=== PATIENT | female | born 1945 | race Caucasian/White ===

== ENCOUNTER 2018-07-24 12:53 | Inpatient (IN) ==
[2018-07-24] MEDS ORDERED: dilTIAZem HCl 5 MG/ML 5 ML VIAL IV STA (13:10)
[2018-07-24] MEDS ORDERED: SODIUM CHLORIDE 0.9% 500 ML IV SCH (13:15)
--- NOTE | 2018-07-24 13:18 | XRay Report ---
XR chest 1V portable CLINICAL HISTORY: weakness COMPARISON STUDY: No previous studies for comparison. FINDINGS: The heart is enlarged. There is radiographic evidence of mild congestive failure/fluid over load. Trace pleural effusions are suspected. There is no focal pulmonary consolidation.[ IMPRESSION: Cardiomegaly and radiographic evidence of mild congestive failure/fluid overload. Electronically signed by: Humble Guajardo M.D. 07/24/2018 1:17 PM
[2018-07-24 14:00] LABS: Basophils # (auto) 0.01 K/uL (0-0.2); Basophils % (auto) 0.1 %; Eosinophils # (auto) 0.02 K/uL (0-0.5); Eosinophils % (auto) 0.3 %; Hemoglobin 12.7 g/dL (12.0-16.0); Immature Granulocytes # (auto) 0.01 K/uL (0.00-0.02); Immature Granulocytes % (auto) 0.1 %; Mean Corpuscular Hgb Conc 31.8 g/dL (32-36); Mean Platelet Volume 11.3 fL (7.4-10.4); Monocytes # (auto) 0.29 K/uL (0.11-0.59); Neutrophils # (auto) 5.88 K/uL (1.4-6.5); Neutrophils % (auto) 80.5 %; Platelet Count 197 K/uL (130-400); RDW Coefficient of Variation 13.6 % (11.5-14.5); RDW Standard Deviation 49.2 fL (36.4-46.3); Red Blood Count 4.04 M/uL (4.2-5.4); White Blood Count 7.31 K/uL (4.8-10.8)
[2018-07-24 14:12] LABS: Albumin Level 3.6 gm/dl (3.4-5.0); BUN Creatinine Ratio 23.4 (10-20); Calcium 9.3 mg/dl (8.5-10.1); Creatinine Clr Calc Pharmacy 32.5 ml/min; Est GFR (African American) 23.2; Magnesium 2.1 mg/dl (1.8-2.4); Potassium 4.5 mmol/L (3.5-5.1)
[2018-07-24 14:17] LABS: INR 1.1 (0.9-1.1); Partial Thromboplastin Time 27.1 Seconds (21.0-31.0); Prothrombin Time 11.3 Seconds (9.0-12.0)
[2018-07-24 14:23] LABS: Bilirubin,Total 0.8 mg/dl (0.2-1); Globulin 3.5 gm/dl (2.5-4.0); Total Protein 7.1 gm/dl (6.4-8.2); Troponin I 0.035 ng/ml (0-0.045)
[2018-07-24] MEDS ORDERED: AMIODARONE IV BOLUS / DRIP IV STA (14:23)
[2018-07-24 14:38] LABS: Appearance Urine Clear (Clear); Bacteria Urine Automated Negative (Negative); Bilirubin Urine Negative (Negative); Blood Urine Negative (Negative); Color Urine Yellow; Glucose Urine UA Negative (Negative); Ketones Urine Negative (Negative); Leukocyte Esterase Urine Trace (Negative); Nitrite Urine Negative (Negative); Protein Urine Negative (Negative); RBC Urine Automated 0-4 /hpf (0-4); Specific Gravity Urine 1.016 (1.000-1.030); Urobilinogen Urine Negative (Negative)
[2018-07-24] MEDS ORDERED: AMIODARONE / D5W 150 MG/100 ML BAG IV STA (14:42)
--- NOTE | 2018-07-24 14:42 | Cardiology Consultation ---
Date of Consultation July 24, 2018 Assessment & Plan (1) Atrial fibrillation with RVR: The patient has been chronically anticoagulated with renally dose adjusted Eliquis 2.5 mg twice daily. She has not missed any doses she took a dose this morning. Will proceed with rhythm control strategy. Due to her underlying history of structural heart disease with left ventricular hypertrophy and aortic valve stenosis, proceed with IV amiodarone infusion. We will try to optimize her volume status, if she remains in atrial fibrillation, consideration will be made toward direct current cardioversion this admission. Continue Eliquis 2.5 mg twice daily for stroke prophylaxis. (2) Acute on chronic diastolic (congestive) heart failure: Trace bilateral pleural effusions. We will work on optimizing heart rate, continue hospital dose of torsemide for n ow, versus IV furosemide depending upon how her blood pressure heart rate response to the amiodarone infusion (3) Chronic kidney disease, stage IV (severe): Creatinine today of 2.31, calculated GFR 20 mL/min/m, relatively unchanged compared to previous creatinine 2.1 as an outpatient December 2017 calculated GFR of 22.5 at that time. (4) Aortic stenosis: History of moderate to severe aortic stenosis, update echocardiogram. History of Present Illness History of Present Illness Cindy Hicks is a 73 year old female seen in cardiology consultation in the emergency room bed C4 per the request of Dr Trinidad and Kaleb Tate PA-C for the evaluation of atrial fibrillation with rapid ventricular response. The patient described feeling poorly for the last few weeks with easy fatigability. She has a home pulse oximeter and she noted that with minimal exertion it would register heart rates up to the 165 bpm range. She thought that the monitor was making an air and that perhaps she needed to change the batteries, however she was seen in outpatient cardiology follow-up by Mr. Tate today at [facility] and was found to have atrial fibrillation with rapid ventricular response. Her EKG performed at [facility] revealed atrial fibrillation with rapid ventricular response at 108 bpm. Compared to the prior tracing performed 07/04/2017 atrial fibrillation had replaced sinus rhythm and the ventricular rate had increased by 58 bpm. Mild nonspecific lateral repolarization changes were noted. The patient was transferred by EMS. She had received 20 mg of IV diltiazem administered by EMS in route to the hospital, and prior to my assessment of her in emergency room she had just received an additional 10 mg of IV diltiazem. Her rates on arrival to the emergency room where the range of 140 bpm, now with a range of 90 bpm. Past Medical History: 1.History of paroxysmal atrial fibrillation. 2.Chronic diastolic heart failure with preserved LV systolic function. 3.Moderate to severe calcific aortic valve stenosis. 4.Longstanding hypertension. 5.Chronic nocturnal hypoxia. 6.Stage IV chronic kidney disease. 7.Bilateral inte 8. Iron deficiency anemia. 9.Dyslipidemia Surgical History: 1. Remote cholecystectomy 1981 2. Tubal ligation 1974 3. Right cataract extraction 2008 Family History: Father with history of "heart disease "details unknown Mother with history of diabetes and TIA. Social History: Lives in 5th floor apartment Non-smoker On disability due to neuropathy Allergies Allergy/AdvReac Type Severity Reaction Status Date / Time No Known Allergies Allergy Unverified 07/24/18 14:22 Home Medications Home Medications Medication Instructions Recorded Confirmed Type allopurinol 200 mg PO DAILY 07/24/18 07/24/18 History amlodipine 10 mg PO DAILY 07/24/18 07/24/18 History apixaban [Eliquis] 2.5 mg PO BID 07/24/18 07/24/18 History calcitriol 0.25 mcg PO Q2D 07/24/18 07/24/18 History carvedilol [Coreg] 12.5 mg PO PM 07/24/18 07/24/18 History carvedilol [Coreg] 25 mg PO QAM 07/24/18 07/24/18 History duloxetine [Cymbalta] 30 mg PO DAILY 07/24/18 07/24/18 History duloxetine [Cymbalta] 60 mg PO DAILY 07/24/18 07/24/18 History insulin glargine [Lantus Solostar 48 unit SUBCUT DAILY 07/24/18 07/24/18 History U-100 Insulin] isosorbide mononitrate 30 mg PO DAILY 07/24/18 07/24/18 History levothyroxine [Synthroid] 175 mcg PO DAILY 07/24/18 07/24/18 History linagliptin [Tradjenta] 5 mg PO DAILY 07/24/18 07/24/18 History loratadine [Claritin] 10 mg PO DAILY 07/24/18 07/24/18 History losartan 50 mg PO DAILY 07/24/18 07/24/18 History metolazone 2.5 mg PO DAILY 07/24/18 07/24/18 History ranitidine HCl [Zantac] 150 mg PO BID 07/24/18 07/24/18 History rosuvastatin [Crestor] 20 mg PO DAILY 07/24/18 07/24/18 History torsemide [Demadex] 20 mg PO DAILY 07/24/18 07/24/18 History tramadol 50 mg PO Q8H PRN 07/24/18 07/24/18 History Patient History Medical History Paroxysmal atrial fibrillation (Chronic) Social History Feels Safe at Home: Yes Smoking Status: Never smoker Physical Exam Physical Exam: General: no acute distress and stated age Eyes: conjunctiva are pink and non-injected, sclera clear Neck: normal jugular venous pulse, no hepatojugular reflux Chest: normal shape and normal respiratory effort Lungs: Mildly decreased breath sounds at the bases bilaterally Cardiac Exam: -Irregular rhythm, 1/6 systolic murmur heard best at the right sternal border Abdomen: abdomen soft, non-tender, no abnormal masses and no hepatosplenomegaly Musculoskeletal: no gait disturbance, no weakness Extremities: no edema and no cyanosis Neuro:awake, coversant, follows commands, no focal motor deficits Psych: appropriate affect and insight. Results & Data Vital Signs (Past 12 Hours) Vital Signs Temp Pulse Resp BP Pulse Ox 07/24/18 13:25 105 H 22 96 07/24/18 13:04 36.5 C 109 H 22 164/107 H 96 Laboratory Results Cardiac Enzymes 07/24/18 Range/Units 13:42 AST 8 L (15-37) U/L Troponin I 0.035 (0-0.045) ng/ml Coagulation 07/24/18 Range/Units 13:42 PT 11.3 (9.0-12.0) Seconds APTT 27.1 (21.0-31.0) Seconds CBC 07/24/18 Range/Units 13:42 WBC 7.31 (4.8-10.8) K/uL RBC 4.04 L (4.2-5.4) M/uL Hgb 12.7 (12.0-16.0) g/dL Hct 40.0 (37-47) % Plt Count 197 (130-400) K/uL Neut # (Auto) 5.88 (1.4-6.5) K/uL Lymph # (Auto) 1.10 L (1.2-3.4) K/uL [place] # (Auto) 0.29 (0.11-0.59) K/uL Eos # (Auto) 0.02 (0-0.5) K/uL Baso # (Auto) 0.01 (0-0.2) K/uL Comprehensive Metabolic Panel 07/24/18 Range/Units 13:42 Sodium 137 (136-145) mmol/L Potassium 4.5 (3.5-5.1) mmol/L Chloride 105 (98-107) mmol/L Carbon Dioxide 28 (21-32) mmol/L BUN 54 H (7-18) mg/dl Creatinine 2.31 H (0.6-1.2) mg/dl Glucose 255 H (70-99) mg/dl Calcium 9.3 (8.5-10.1) mg/dl AST 8 L (15-37) U/L ALT 12 (12-78) U/L Alkaline Phosphatase 137 H (45-117) U/L Total Protein 7.1 (6.4-8.2) gm/dl Albumin 3.6 (3.4-5.0) gm/dl Intake and Output 07/23/18 07/24/18 07/24/18 22:59 06:59 14:59 Intake Total 100 / 100 Balance 100 / 100 Intake: IV 100 / 100 Left Forearm 100 / 100 Other: Weight 145 kg Patient Weight 07/25/18 06:59 Weight 145 kg Diagnostic Findings EKG as outlined above Medications Administered Current Inpatient Medications Amiodarone HCl (Cordarone Iv Bolus / Drip) 1 ea IV NOW STA; Protocol Stop: 07/24/18 14:24 Amiodarone HCl/Dextrose (Nexterone / D5w) 360 mg in 200 mls @ 33.333 mls/hr IV .Q6H LESTER Stop: 07/24/18 20:29 Amiodarone HCl/Dextrose (Nexterone / D5w) 360 mg in 200 mls @ 16.667 mls/hr IV .Q12H LESTER Stop: 08/23/18 20:22 Amiodarone HCl/Dextrose (Nexterone / D5w) 150 mg in 100 mls @ 600 mls/hr IV ONE STA Stop: 07/24/18 14:32
[2018-07-24] MEDS ORDERED: AMIODARONE / D5W 360 MG/200 ML BAG IV SCH (14:51)
--- NOTE | 2018-07-24 15:53 | History & Physical Report ---
Date of Service July 24, 2018 Assessment & Plan (1) Atrial fibrillation with RVR: Pt with hx of paroxysmal atrial fibrillation on Eliquis. Pt presented to ER from cardiology office for A-fib RVR rate of 108 En route pt was given cardizem 20mg. In ER was given additional cardizem 10mg. Pt is afebrile, P: 109, R: 22, BP: 164/107, 129/92, 96%. WBC: 7.3, Hgb: 12.7, INR: 1.1, magnesium: 2.1, Troponin: 0.035, TSH: 4.1. EKG: a-fib, rate 91 -Cardiology saw pt in ER and started on amiodarone drip -Continue Eliquis -Echo pending -Monitor CBC, BMP -Cardiology consult, appreciate recommendations (2) Acute on chronic diastolic (congestive) heart failure: CXR: cardiomegaly and radiographic evidence of mild congestive failure/fluid overload. Pt denies orthopnea -continue home torsemide per cardiology -monitor I&Os, daily weights (3) Diabetes mellitus, type II: A1c: 9.9 on 09/2017 -continue home Lantus, Novolog sliding scale per protocol -hold Tradjenta -A1c in am (4) HTN (hypertension): Stable -Monitor BP closely, pt on amiodarone drip -Continue losartan, carvedilol, isosorbide (5) Dyslipidemia: -continue statin (6) Aortic stenosis: Hx moderate aortic valve stenosis, last echo 12/2017 (7) Chronic kidney disease, stage IV (severe): Cr: 2.3. Baseline Cr: 2.1 -monitor renal functions -avoid nephrotoxic agents when possible (8) Depression: -continue duloxetine (9) Nocturnal hypoxia: -Continue oxygen 2L NC HS (10) Hypothyroidism: TSH: 4.1 -continue levothyroxine DVT Prophylaxis -On Eliquis DNR as per discussion with pt Follows with Dr Herr for routine care Pt was seen with Dr Putnam. See addendum History of Present Illness Chief Complaint: A-fib Primary Care Provider: Miquel Herr MD Pt is 73 y/o F with PMH paroxysmal atrial fibrillation on Eliquis, chronic diastolic heart failure, aortic valve stenosis, HTN, dyslipidemia, CKD IV, chronic nocturnal hypoxia, chronic anemia, DM II, obesity, depression, hypothyroidism presented to ER from cardiology office for atrial fibrillation. Patient was seen today cardiology office and had noted atrial fibrillation with rate of 108. Patient reports that she has been having intermittent tachypalpitations, dizziness over the past couple of weeks. Also reports increased dyspnea on exertion, nonproductive cough, increased fatigue. Patient states has home pulse oximeter and had noted on several occasions her pulse was recorded at 165. Patient denies missed doses of Eliquis. Denies fever/chills, diaphoresis, N/V/D/C, [place], syncope, vision changes, neck pain, CP, orthopnea, sore throat, choking, otalgia, rhinorrhea, abdominal pain, paresthesias, weakness, extremity edema, rashes, urinary symptoms. 12/2017: Echo: EF: 55-59%, moderate aortic valve stenosis, mild mitral regurgitation, small pericardial effusion Allergies Allergy/AdvReac Type Severity Reaction Status Date / Time No Known Allergies Allergy Unverified 07/24/18 14:22 Home Medications Home Medications Medication Instructions Recorded Confirmed Type allopurinol 200 mg PO DAILY 07/24/18 07/24/18 History amlodipine 5 mg PO DAILY 07/24/18 07/24/18 History apixaban [Eliquis] 2.5 mg PO BID 07/24/18 07/24/18 History calcitriol 0.25 mcg PO UD 07/24/18 07/24/18 History carvedilol [Coreg] 12.5 mg PO PM 07/24/18 07/24/18 History carvedilol [Coreg] 25 mg PO QAM 07/24/18 07/24/18 History duloxetine [Cymbalta] 30 mg PO HS 07/24/18 07/24/18 History duloxetine [Cymbalta] 60 mg PO DAILY 07/24/18 07/24/18 History insulin aspart U-100 [Novolog 14 unit SUBCUT TIDM 07/24/18 07/24/18 History Flexpen U-100 Insulin] insulin glargine [Lantus Solostar 48 unit SUBCUT DAILY 07/24/18 07/24/18 History U-100 Insulin] isosorbide mononitrate 30 mg PO DAILY 07/24/18 07/24/18 History levothyroxine [Synthroid] 175 mcg PO DAILY 07/24/18 07/24/18 History linagliptin [Tradjenta] 5 mg PO DAILY 07/24/18 07/24/18 History loratadine [Claritin] 10 mg PO DAILY 07/24/18 07/24/18 History losartan 50 mg PO DAILY 07/24/18 07/24/18 History ranitidine HCl [Zantac] 150 mg PO BID 07/24/18 07/24/18 History rosuvastatin [Crestor] 20 mg PO HS 07/24/18 07/24/18 History torsemide [Demadex] 20 mg PO DAILY 07/24/18 07/24/18 History tramadol 50 mg PO Q8H PRN 07/24/18 07/24/18 History Past Med/Surg History Medical History Nocturnal hypoxia (Chronic) Hypothyroidism (Chronic) Depression (Chronic) Chronic anemia (Chronic) Paroxysmal atrial fibrillation (Chronic) Chronic diastolic heart failure (Chronic) Diabetes mellitus, type II (Chronic) GERD (gastroesophageal reflux disease) (Chronic) HTN (hypertension) (Chronic) Dyslipidemia (Chronic) Aortic stenosis (Chronic) Chronic kidney disease, stage IV (severe) (Chronic) Paroxysmal atrial fibrillation (Chronic) Kidney disease Surgical History History of cholecystectomy (Chronic) History of tubal ligation (Chronic) History of cataract surgery (Chronic) Family History Mother Diabetes Father Coronary heart disease Social History Preferred Language: Palestinian Communication 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 Beliefs That Will Affect Care: None Current Living Situation: Alone Current Living Situation Comment: apartment for elderly Other Information That Helps Us Care for You: No Feels Safe at Home: Yes Safety Concerns: Feels Safe At This Time Smoking Status: Never smoker Hx Alcohol Use: No Hx Substance Use: No Review of Systems Review of Systems: All systems reviewed & are unremarkable except as noted in HPI & below Physical Exam Physical Exam: General: no acute distress, obese Head: normocephalic, atraumatic Eyes: PERRL, EOM's intact, conjunctiva non-injected, anicteric ENT: normal inspection external ears, nose, mucous membranes moist Neck: supple, trachea midline Lungs: no respiratory distress, diminished breath sounds bases CV: irregularly irregular, systolic murmur, 1+ pretibial edema Abd: normal BS, soft, non-tender Ext: no cyanosis, no calf tenderness Neuro: A&O x 3, no focal deficits noted, normal affect Skin: warm, dry Results & Data Vital Signs (Past 12 Hours) Vital Signs Temp Pulse Pulse Resp BP BP Pulse Ox 07/24/18 15:39 92 07/24/18 15:36 88 22 143/88 H 88 L 07/24/18 14:44 96 H 24 129/92 91 07/24/18 13:25 105 H 22 96 07/24/18 13:04 36.5 C 109 H 22 164/107 H 96 Laboratory Results Short CBC 07/24/18 Range/Units 13:42 WBC 7.31 (4.8-10.8) K/uL Hgb 12.7 (12.0-16.0) g/dL Hct 40.0 (37-47) % Plt Count 197 (130-400) K/uL BMP 07/24/18 13:42 Sodium 137 Potassium 4.5 Chloride 105 Carbon Dioxide 28 BUN 54 H Creatinine 2.31 H Glucose 255 H Calcium 9.3 Cardiac Enzymes 07/24/18 Range/Units 13:42 Troponin I 0.035 (0-0.045) ng/ml Liver Function 07/24/18 Range/Units 13:42 Total Bilirubin 0.8 (0.2-1) mg/dl AST 8 L (15-37) U/L ALT 12 (12-78) U/L Alkaline Phosphatase 137 H (45-117) U/L Albumin 3.6 (3.4-5.0) gm/dl Urine 07/24/18 Range/Units 14:19 Urine Color Yellow Urine Appearance Clear (Clear) Urine pH 5.0 (4.5-7.5) Ur Specific [place] 1.016 (1.000-1.030) Urine Protein Negative (Negative) Urine Glucose (UA) Negative (Negative) Diagnostic Findings CXR: IMPRESSION: Cardiomegaly and radiographic evidence of mild congestive failure/fluid overload. ECG Rate (beats per minute): 91 Rhythm: atrial fibrillation Supervising Physician Co-Signing Physician Notes Pt was seen and examined. Agreed with Tammi Samuel exam, assessment and plan. 73 y/o F with PMH paroxysmal atrial fibrillation on Eliquis, chronic diastolic heart failure, aortic valve stenosis, HTN, dyslipidemia, CKD IV, chronic nocturnal hypoxia, chronic anemia, DM II, obesity, depression, hypothyroidism presented to ER from cardiology office for atrial fibrillation. Pt said that she has been having palpitation and flutter sensation in her chest for the past few weeks. she was seen in outpatient cardiology follow-up by Mr. Tate today at [facility] and was found to have atrial fibrillation with rapid ventricular response. Her EKG performed at [facility] revealed atrial fibrillation with rapid ventricular response at 108 bpm. She received IV cardizem 20mg IV today by EMS and additional 10mg IV in the ER. Cardiology on board and started on amiodarone drip. She has been on Eliquis and will continue anticoagulant with eliquis. Currently rate control. If remains on Afib, possible cardioversion by cardiology. For now Pt would like to proceed with a trial of medication therapy prior to consideration of direct-current cardioversion. Continue monitor closely in tele. MD [place]
[2018-07-24] MEDS ORDERED: GLUCAGON FOR INJ 1 MG VIAL SQ PRN (18:03)
[2018-07-24] MEDS ORDERED: GLUCOSE 40% GEL 15 GM TUBE PO PRN (18:03)
[2018-07-24] MEDS ORDERED: GLUCOSE 10 TABS/TUBE PO PRN (18:03)
[2018-07-24] MEDS ORDERED: DEXTROSE 50% 50 ML SYRINGE IV PRN (18:03)
[2018-07-24] MEDS ORDERED: Heparin IV Low Dose *NO* Bolus IV STA (18:53)
--- NOTE | 2018-07-24 19:25 | Cardiology Progress Note ---
Date of Service July 24, 2018 Subjective I received a page from a clinical pharmacy. Concerns were raised regarding the patient's proper anticoagulation dose. She has been on Eliquis 2.5 mg twice daily. She has renal insufficiency with a calculated GFR of 20 mL/min/m on a chronic basis. She is 73 years old, and she is obese with a body mass index of 47.5 kg/m. Eliquis 2.5 mg twice daily is the dose for patients with 2 of the 3 risk factors, creatinine > 1.5, Age > 80 years, and wt of less than 60 kg. This patient has renal insufficiency, but she is only 73 years old she is obese, and therefore the dose for her is difficult to determine. She is currently in atrial fibrillation. Overall, I would grow concerned that there is not an appropriate dose adjustment for the direct oral anticoagulant agents that suits her clinical criteria, and after careful consideration will instead transition her to unfractionated heparin infusion, with goals of likely transition her to Coumadin in the future. Results & Data Vital Signs (Past 12 Hours) Vital Signs Temp Pulse Pulse Resp BP BP Pulse Ox 07/24/18 17:17 36.7 C 85 20 145/88 H 96 07/24/18 16:45 112 H 20 121/82 92 07/24/18 15:39 92 07/24/18 15:36 88 22 143/88 H 88 L 07/24/18 14:44 96 H 24 129/92 91 07/24/18 13:25 105 H 22 96 07/24/18 13:04 36.5 C 109 H 22 164/107 H 96
[2018-07-24] MEDS: INSULIN ASPART 100 UNITS/ML 3 ML PEN SC SCH ×2 (19:36→21:27)
--- NOTE | 2018-07-24 19:42 | Emergency Department Note ---
Entered by Merline Nogueira acting as a scribe for History of Present Illness General Chief complaint: Arrhythmia/Palpitations Stated complaint: aflut Source: patient History of Present Illness Onset (ago): hour(s) (just prior to arrival) Location: chest Severity: similar to prior episodes Pain Consistency: + now resolved and + other (episode) Quality: + other (racing heartbeat ) Associated symptoms: no chest pain and no shortness of breath The patient is a 73 year old female who presents to the Emergency Room with complaints of a now resolved episode of racing heartbeat that began just prior to arrival. She states that she has had several episodes similar to this over the past two weeks. The patient denies chest pain and shortness of breath. The patient states that she was exerting herself when these symptoms began. The patient states that she is currently on a blood thinner. Home Medications Home Medications Medication Instructions Recorded Confirmed Type allopurinol 200 mg PO DAILY 07/24/18 07/24/18 History amlodipine 5 mg PO DAILY 07/24/18 07/24/18 History apixaban [Eliquis] 2.5 mg PO BID 07/24/18 07/24/18 History calcitriol 0.25 mcg PO UD 07/24/18 07/24/18 History carvedilol [Coreg] 12.5 mg PO PM 07/24/18 07/24/18 History carvedilol [Coreg] 25 mg PO QAM 07/24/18 07/24/18 History duloxetine [Cymbalta] 30 mg PO HS 07/24/18 07/24/18 History duloxetine [Cymbalta] 60 mg PO DAILY 07/24/18 07/24/18 History insulin aspart U-100 [Novolog 14 unit SUBCUT TIDM 07/24/18 07/24/18 History Flexpen U-100 Insulin] insulin glargine [Lantus Solostar 48 unit SUBCUT DAILY 07/24/18 07/24/18 History U-100 Insulin] isosorbide mononitrate 30 mg PO DAILY 07/24/18 07/24/18 History levothyroxine [Synthroid] 175 mcg PO DAILY 07/24/18 07/24/18 History linagliptin [Tradjenta] 5 mg PO DAILY 07/24/18 07/24/18 History loratadine [Claritin] 10 mg PO DAILY 07/24/18 07/24/18 History losartan 50 mg PO DAILY 07/24/18 07/24/18 History ranitidine HCl [Zantac] 150 mg PO BID 07/24/18 07/24/18 History rosuvastatin [Crestor] 20 mg PO HS 07/24/18 07/24/18 History torsemide [Demadex] 20 mg PO DAILY 07/24/18 07/24/18 History tramadol 50 mg PO Q8H PRN 07/24/18 07/24/18 History Allergies Allergy/AdvReac Type Severity Reaction Status Date / Time No Known Allergies Allergy Unverified 07/24/18 14:22 Past Med/Surg History Medical History Nocturnal hypoxia (Chronic) Hypothyroidism (Chronic) Depression (Chronic) Chronic anemia (Chronic) Paroxysmal atrial fibrillation (Chronic) Chronic diastolic heart failure (Chronic) Diabetes mellitus, type II (Chronic) GERD (gastroesophageal reflux disease) (Chronic) HTN (hypertension) (Chronic) Dyslipidemia (Chronic) Aortic stenosis (Chronic) Chronic kidney disease, stage IV (severe) (Chronic) Paroxysmal atrial fibrillation (Chronic) Kidney disease Surgical History History of cholecystectomy (Chronic) History of tubal ligation (Chronic) History of cataract surgery (Chronic) Family History Mother Diabetes Father Coronary heart disease Social History Preferred Language: [place] Communication Ability: Effective 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 and A total of 10 systems reviewed and were otherwise negative Physical Exam Vital Signs Vital Signs - 24 hr 07/24/18 13:04 07/24/18 13:25 07/24/18 14:44 Temperature 36.5 C Temperature Source Oral Sepsis Recent Fever Within 48 Hours No Sepsis New/Unexplained Change in Mental Status No Sepsis Action Taken by Nursing No Action Required Pulse Rate 109 H 105 H Pulse Rate [Right Finger] 96 H Pulse Rhythm Irregular Pulse Rhythm [Right Finger] Pulse Strength [Right Finger] Respiratory Rate 22 22 24 Respiratory Effort / Characteristics Non-Labored Non-Labored Respiratory Depth Normal Normal Respiratory Pattern Regular Blood Pressure 164/107 H Blood Pressure [Right Arm] 129/92 Blood Pressure Mean 126 Blood Pressure Mean [Right Arm] 104 Blood Pressure Position Lying Blood Pressure Position [Right Arm] Pulse Oximetry 96 96 91 Oxygen Delivery Method Room Air Room Air Room Air Oxygen Flow Rate 07/24/18 15:36 07/24/18 15:39 07/24/18 16:45 Temperature Temperature Source Sepsis Recent Fever Within 48 Hours Sepsis New/Unexplained Change in Mental Status Sepsis Action Taken by Nursing Pulse Rate 112 H Pulse Rate [Right Finger] 88 Pulse Rhythm Pulse Rhythm [Right Finger] Pulse Strength [Right Finger] Respiratory Rate 22 20 Respiratory Effort / Characteristics Non-Labored Respiratory Depth Normal Respiratory Pattern Blood Pressure 121/82 Blood Pressure [Right Arm] 143/88 H Blood Pressure Mean Blood Pressure Mean [Right Arm] 106 Blood Pressure Position Blood Pressure Position [Right Arm] Pulse Oximetry 88 L 92 92 Oxygen Delivery Method Room Air Nasal Cannula Oxygen Flow Rate 1 1 07/24/18 17:17 Temperature 36.7 C Temperature Source Oral Sepsis Recent Fever Within 48 Hours Sepsis New/Unexplained Change in Mental Status Sepsis Action Taken by Nursing Pulse Rate Pulse Rate [Right Finger] 85 Pulse Rhythm Pulse Rhythm [Right Finger] Irregular Pulse Strength [Right Finger] Normal Respiratory Rate 20 Respiratory Effort / Characteristics Non-Labored Respiratory Depth Normal Respiratory Pattern Regular Blood Pressure Blood Pressure [Right Arm] 145/88 H Blood Pressure Mean Blood Pressure Mean [Right Arm] 107 Blood Pressure Position Blood Pressure Position [Right Arm] Lying Pulse Oximetry 96 Oxygen Delivery Method Room Air Oxygen Flow Rate GENERAL: Patient is awake, alert, and in no acute distress.Patient is resting comfortably and showing no signs of anxiety EYES: The conjunctivae are clear. The pupils are round and reactive. EARS, NOSE, MOUTH AND THROAT: The nose is without any evidence of any deformity. Mucous membranes are moist.Tongue is midline NECK: The neck is nontender and supple. RESPIRATORY: Normal respiratory effort is noted. There is no evidence of wheezi ng rhonchi or rales to auscultation. Lung sounds diminished in both bases. CARDIOVASCULAR: Tachycardic rate and irregular rhythm noted. Systolic murmur suggested. There no rubs or gallops normal S1 normal S2. GASTROINTESTINAL: The abdomen is soft. Bowel sounds are present in all quadrants. Abdomen is nontender. MUSCULOSKELETAL/EXTREMITIES: There is no evidence of gross deformity. Full range of motion is noted in the hips and shoulders. SKIN: There is no obvious evidence of any rash. There are no petechiae, pallor or cyanosis noted. Trace pedal edema bilaterally. NEUROLOGIC: Patient is awake alert and oriented x3. Course 1302: The patient was evaluated in room C4, and a complete history and physical examination were performed. 1431: I discussed the case with Dr. Soni who recommends that the patient be further evaluated, given amiodarone drip, and an echocardiogram. 1445: I discussed the case with Farooq Murphy PA-C who accepts the patient for further evaluation. Consultations Consultation #1: I discussed the case with Dr. Soni who recommends that the patient be further evaluated, given amiodarone drip, and an echocardiogram. Time: 14:31 Consultation #2: I discussed the case with Farooq Murphy PA-C who accepts the patient for further evaluation. Time: 14:45 Administered Medications Amiodarone HCl/Dextrose (Nexterone / D5w) 360 mg in 200 mls @ 33.333 mls/hr IV .Q6H [facility] Stop: 07/24/18 20:50 Last Admin: 07/24/18 15:40 Dose: 1 mg/min, 33.3 mls/hr Documented by: [id number] Cosigned by: [id number] Discontinued Medications Diltiazem HCl (Cardizem) 10 mg IV NOW STA Stop: 07/24/18 13:11 Last Admin: 07/24/18 13:29 Dose: 10 mg Documented by: [id number] Cosigned by: [id number] Sodium Chloride (Nss) 500 mls @ 999 mls/hr IV .Q31M [facility] Stop: 07/24/18 13:45 Last Admin: 07/24/18 13:29 Dose: 999 mls/hr Documented by: [id number] Medical Decision Making Differential Diagnosis Differential diagnosis: Etiologies such as premature contractions, electrolyte abnormality, cardiac dysrhythmia, thyroid dysfunction, pulmonary embolism, infection, gastrointestinal, as well as others were entertained. Medical Records Attestation: I reviewed the patient's medical records. Home Medications Current Medication List: was personally reviewed by me Laboratory Data Attestation: I reviewed the patient's lab results. Result diagrams: 07/24/18 13:42 07/24/18 13:42 Lab Results 07/24/18 07/24/18 07/24/18 Range/Units 13:42 13:42 13:42 WBC 7.31 (4.8-10.8) K/uL RBC 4.04 L (4.2-5.4) M/uL Hgb 12.7 (12.0-16.0) g/dL Hct 40.0 (37-47) % MCV 99.0 (80-100) fL MCH 31.4 (25-34) pg MCHC 31.8 L (32-36) g/dL RDW Std Deviation 49.2 H (36.4-46.3) fL RDW Coeff of Debora 13.6 (11.5-14.5) % Plt Count 197 (130-400) K/uL MPV 11.3 H (7.4-10.4) fL Immature Gran % (Auto) 0.1 % Neut % (Auto) 80.5 % Lymph % (Auto) 15.0 % [place] % (Auto) 4.0 % Eos % (Auto) 0.3 % Baso % (Auto) 0.1 % Immature Gran # (Auto) 0.01 (0.00-0.02) K/uL Neut # (Auto) 5.88 (1.4-6.5) K/uL Lymph # (Auto) 1.10 L (1.2-3.4) K/uL [place] # (Auto) 0.29 (0.11-0.59) K/uL Eos # (Auto) 0.02 (0-0.5) K/uL Baso # (Auto) 0.01 (0-0.2) K/uL PT 11.3 (9.0-12.0) Seconds INR 1.1 (0.9-1.1) APTT 27.1 (21.0-31.0) Seconds PTT Ratio 1.0 Sodium 137 (136-145) mmol/L Potassium 4.5 (3.5-5.1) mmol/L Chloride 105 (98-107) mmol/L Carbon Dioxide 28 (21-32) mmol/L Anion Gap 4.0 (3-11) BUN 54 H (7-18) mg/dl Creatinine 2.31 H (0.6-1.2) mg/dl Est Cr Clr Drug Dosing 32.5 ml/min Est GFR ( Amer) 23.2 Est GFR (Non-Af Amer) 20.0 BUN/Creatinine Ratio 23.4 H (10-20) Glucose 255 H (70-99) mg/dl POC Glucose (70-99) Calcium 9.3 (8.5-10.1) mg/dl Magnesium 2.1 (1.8-2.4) mg/dl Total Bilirubin 0.8 (0.2-1) mg/dl AST 8 L (15-37) U/L ALT 12 (12-78) U/L Alkaline Phosphatase 137 H (45-117) U/L Troponin I 0.035 (0-0.045) ng/ml Total Protein 7.1 (6.4-8.2) gm/dl Albumin 3.6 (3.4-5.0) gm/dl Globulin 3.5 (2.5-4.0) gm/dl Albumin/Globulin Ratio 1.0 (0.9-2) TSH 4.180 (0.300-4.500) uIu/ml Urine Color Urine Appearance (Clear) Urine pH (4.5-7.5) Ur Specific [place] (1.000-1.030) Urine Protein (Negative) Urine Glucose (UA) (Negative) Urine Ketones (Negative) Urine Blood (Negative) Urine Nitrite (Negative) Urine Bilirubin (Negative) Urine Urobilinogen (Negative) Ur Leukocyte Esterase (Negative) Urine WBC (Auto) (0-5) /hpf Urine RBC (Auto) (0-4) /hpf U Hyaline Cast (Auto) (0-5) /lpf U Epithel Cells (Auto) (0-5) /lpf Urine Bacteria (Auto) (Negative) 07/24/18 07/24/18 Range/Units 14:19 19:18 WBC (4.8-10.8) K/uL RBC (4.2-5.4) M/uL Hgb (12.0-16.0) g/dL Hct (37-47) % MCV (80-100) fL MCH (25-34) pg MCHC (32-36) g/dL RDW Std Deviation (36.4-46.3) fL RDW Coeff of Debora (11.5-14.5) % Plt Count (130-400) K/uL MPV (7.4-10.4) fL Immature Gran % (Auto) % Neut % (Auto) % Lymph % (Auto) % [place] % (Auto) % Eos % (Auto) % Baso % (Auto) % Immature Gran # (Auto) (0.00-0.02) K/uL Neut # (Auto) (1.4-6.5) K/uL Lymph # (Auto) (1.2-3.4) K/uL [place] # (Auto) (0.11-0.59) K/uL Eos # (Auto) (0-0.5) K/uL Baso # (Auto) (0-0.2) K/uL PT (9.0-12.0) Seconds INR (0.9-1.1) APTT (21.0-31.0) Seconds PTT Ratio Sodium (136-145) mmol/L Potassium (3.5-5.1) mmol/L Chloride (98-107) mmol/L Carbon Dioxide (21-32) mmol/L Anion Gap (3-11) BUN (7-18) mg/dl Creatinine (0.6-1.2) mg/dl Est Cr Clr Drug Dosing ml/min Est GFR ( Amer) Est GFR (Non-Af Amer) BUN/Creatinine Ratio (10-20) Glucose (70-99) mg/dl POC Glucose 341 H* (70-99) Calcium (8.5-10.1) mg/dl Magnesium (1.8-2.4) mg/dl Total Bilirubin (0.2-1) mg/dl AST (15-37) U/L ALT (12-78) U/L Alkaline Phosphatase (45-117) U/L Troponin I (0-0.045) ng/ml Total Protein (6.4-8.2) gm/dl Albumin (3.4-5.0) gm/dl Globulin (2.5-4.0) gm/dl Albumin/Globulin Ratio (0.9-2) TSH (0.300-4.500) uIu/ml Urine Color Yellow Urine Appearance Clear (Clear) Urine pH 5.0 (4.5-7.5) Ur Specific [place] 1.016 (1.000-1.030) Urine Protein Negative (Negative) Urine Glucose (UA) Negative (Negative) Urine Ketones Negative (Negative) Urine Blood Negative (Negative) Urine Nitrite Negative (Negative) Urine Bilirubin Negative (Negative) Urine Urobilinogen Negative (Negative) Ur Leukocyte Esterase Trace H (Negative) Urine WBC (Auto) 1-5 (0-5) /hpf Urine RBC (Auto) 0-4 (0-4) /hpf U Hyaline Cast (Auto) 1-5 (0-5) /lpf U Epithel Cells (Auto) 10-20 H (0-5) /lpf Urine Bacteria (Auto) Negative (Negative) Imaging Data Radiologist's Impression: Radiology results as stated below per my review and the radiologist's interpretation: XR chest 1V portable CLINICAL HISTORY: weakness COMPARISON STUDY: No previous studies for comparison. FINDINGS: The heart is enlarged. There is radiographic evidence of mild congestive failure/fluid overload. Trace pleural effusions are suspected. There is no focal pulmonary consolidation.[ IMPRESSION: Cardiomegaly and radiographic evidence of mild congestive failure/fluid overload. Electronically signed by: Humble Guajardo M.D. 07/24/2018 1:17 PM ECG Data Attestation: I personally reviewed and interpreted this ECG as follows: Indication: palpitations Rate (beats per minute): 91 Rhythm: atrial fibrillation Findings: + other (diffuse T wave flattening ); no PVC Comparison ECG Date: no prior available Blood Pressure Blood Pressure Findings: Normal blood pressure MDM Narrative The patient is a 73-year-old female who presented to the emergency department for an evaluation of palpitations. Patient was seen by her primary care toya felton and sent to the emergency department for atrial fibrillation. Patient was treated with IV Cardizem prior to arrival. She was also given IV Cardizem in the emergency department. She was feeling much better on subsequent reevaluation. The patient was evaluated by the on-call [facility] dental receptionist in the emergency department. He made recommendations including an amiodarone drip. The patient continued to improve. I discussed the patient's laboratory and radiographic studies with her. I also discussed her case with the on-call [facility] hospitalist group. They have agreed to evaluate the patient in the emergency department for further management and disposition. Impression & Plan Atrial fibrillation with RVR, Dyspnea on exertion, Weakness Discharge Plan Visit Data *Final* Discharge Date/Time: 07/24/18 16:45 Chief Complaint: Arrhythmia/Palpitations Stated Complaint: aflut ED Provider: Enrike Trinidad Discharge Problem: Atrial fibrillation with RVR, Dyspnea on exertion, Weakness Patient Disposition: Admitted As Inpatient Discharge Instructions Interventions: ED Discharge Assessment Last Done: 07/24/18 16:45 The scribe's documentation has been prepared under my direction and personally reviewed by me in its entirety. I confirm that the note above accurately reflects all work, treatment, procedures, and medical decision making performed by me.
[2018-07-24] MEDS: Heparin Adult LOW DOSE Wt-Based Dextrose 5% 25,000 units/500 mL IV SCH (20:18)
[2018-07-24] MEDS ORDERED: APIXABAN 2.5 MG TAB PO SCH (21:00)
[2018-07-24] MEDS: AMIODARONE / D5W 360 MG/200 ML BAG IV SCH (21:22)
[2018-07-24] MEDS: ROSUVASTATIN CALCIUM 20 MG TAB PO SCH (21:24)
[2018-07-24] MEDS: CARVEDILOL 12.5 MG TAB PO SCH (21:25)
[2018-07-24] MEDS: DULOXETINE HCL 30 MG CAP PO SCH (21:25)
[2018-07-24] MEDS: INSULIN GLARGINE SOLOSTAR 100 UNITS/ML 3 ML PEN SC SCH (21:27)
[2018-07-25] MEDS: ACETAMINOPHEN 325 MG TAB PO PRN ×3 (00:13→20:22)
[2018-07-25] MEDS: CARBOHYDRATES FOR HYPOGLYCEMIA PO PRN ×2 (00:36→00:44)
[2018-07-25 02:44] LABS: Hematocrit (blood only) 35.5 % (37-47); Hemoglobin 11.5 g/dL (12.0-16.0); Mean Corpuscular Hgb Conc 32.4 g/dL (32-36); Mean Corpuscular Volume 97.3 fL (80-100); Mean Platelet Volume 10.9 fL (7.4-10.4); Platelet Count 175 K/uL (130-400); RDW Coefficient of Variation 13.6 % (11.5-14.5); RDW Standard Deviation 48.4 fL (36.4-46.3); Red Blood Count 3.65 M/uL (4.2-5.4); White Blood Count 6.56 K/uL (4.8-10.8)
[2018-07-25 02:50] LABS: Partial Thromboplastin Ratio 1.2; Partial Thromboplastin Time 32.2 Seconds (21.0-31.0)
[2018-07-25 02:59] LABS: BUN Creatinine Ratio 23.4 (10-20); Creatinine Clr Calc Pharmacy 29.6 ml/min; Est GFR (African American) 20.7; Est GFR (Non-African American) 17.8; Potassium 4.1 mmol/L (3.5-5.1)
[2018-07-25] MEDS ORDERED: HEPARIN IV BOLUS 4,500 UNITS in SYRINGE 0 ML IV ONE (03:15)
[2018-07-25] MEDS: LEVOTHYROXINE SODIUM 175 MCG TABLET PO SCH (03:44)
[2018-07-25] MEDS ORDERED: SODIUM CHLORIDE 0.65% NA SOLN 45 ML (OCEAN) PRN (05:43)
[2018-07-25 06:13] LABS: Estimated Average Glucose 203 mg/dl; Hemoglobin A1C 8.7 % (4.5-5.6)
[2018-07-25] MEDS: ALLOPURINOL 100 MG TAB PO SCH (07:51)
[2018-07-25] MEDS: LORATADINE 10 MG TAB PO SCH (07:51)
[2018-07-25] MEDS: DULOXETINE HCL 60 MG CAP PO SCH (07:52)
[2018-07-25] MEDS: CARVEDILOL 25 MG TAB PO SCH (07:52)
[2018-07-25] MEDS: TORSEMIDE 20 MG TAB PO SCH (07:52)
[2018-07-25] MEDS: LOSARTAN POTASSIUM 50 MG TAB PO SCH (07:52)
[2018-07-25] MEDS: CALCITRIOL 0.25 MCG CAPSULE PO SCH (07:52)
[2018-07-25] MEDS: AMLODIPINE BESYLATE 5 MG TAB PO SCH (07:52)
[2018-07-25] MEDS: ISOSORBIDE MONO EXTENDED REL 30 MG TABCR PO SCH (07:52)
[2018-07-25] MEDS: INSULIN GLARGINE SOLOSTAR 100 UNITS/ML 3 ML PEN SC SCH ×2 (07:53→20:40)
[2018-07-25] MEDS: INSULIN ASPART 100 UNITS/ML 3 ML PEN SC SCH ×4 (07:56→20:40)
[2018-07-25] MEDS: AMIODARONE / D5W 360 MG/200 ML BAG IV SCH ×2 (08:46→20:41)
[2018-07-25 10:20] LABS: Partial Thromboplastin Ratio 1.5; Partial Thromboplastin Time 41.9 Seconds (21.0-31.0)
[2018-07-25] MEDS ORDERED: HEPARIN IV BOLUS 4,000 UNITS in SYRINGE 0 ML IV SCH (10:53)
--- NOTE | 2018-07-25 11:21 | Cardiology Progress Note ---
Date of Service July 25, 2018 Assessment & Plan (1) Atrial fibrillation with RVR: Rate control: Patient had already been on high-dose beta-hanna (carvedilol). Amiodarone has been added for rate and rhythm control. Screening TSH and thyroid function tests, chest x-ray stable. Patient is on Cymbalta, corrected QT level is stable. Patient feels dramatic improvement. Stroke prophylaxis: Eliquis was discontinued due to difficulties with dosing as she is both obese and has advanced chronic kidney disease. She also has valvular heart disease in the setting of calcific aortic stenosis, I believe Coumadin is the best oral agent for her this point. We will add Coumadin to her heparin. (2) Chronic diastolic heart failure: Small right pleural effusion noted on echocardiogram. Continue prior to hospital dose of torsemide. (3) Aortic stenosis: Moderate to severe calcific aortic stenosis, likely contributing to why she feels so poorly in atrial fibrillation. Aortic valve intervention with transcatheter aortic valve replacement would likely result in progression of her kidney disease to the point that she would require dialysis, therefore continue conservative therapy for now revisit candidacy for valve intervention depending upon how her symptoms progress and her renal function in the future. (4) Chronic kidney disease, stage IV (severe): Creatinine 2.31 on admission, 2.54, stable. Continue prior to hospital torsemide. Subjective Chief complaint: Follow-up exertional shortness of breath, atrial fibrillation Subjective: Patient states that she feels much improved. For the most part atrial fibrillation in the range of 70 to 80 bpm was noted overnight on telemetry and again this morning. She is now on an amiodarone infusion as well as heparin infusion having had established IV access with the assistance of the IV team last evening. She feels like her exertional shortness of breath is much improved. Physical Exam Physical Exam: General: no acute distress and stated age, obese Eyes: conjunctiva are pink and non-injected, sclera clear Neck: normal jugular venous pulse, no hepatojugular reflux Chest: normal shape and normal respiratory effort Lungs: Mildly decreased breath sounds at the bases bilaterally Cardiac Exam: -Irregular rhythm, II/6 systolic murmur Abdomen: abdomen soft, non-tender, no abnormal masses and no hepatosplenomegaly Extremities: no edema and no cyanosis Neuro:awake, coversant, follows commands, no focal motor deficits Psych: appropriate affect and insight. Results & Data Vital Signs (Past 12 Hours) Vital Signs Temp Pulse Pulse Resp BP Pulse Ox 07/25/18 07:30 36.5 C 83 18 144/74 H 95 07/25/18 03:17 36.9 C 47 L 19 149/88 H 94 07/25/18 00:03 36.8 C 86 20 136/76 93 07/25/18 00:00 90 Laboratory Results Cardiac Enzymes 07/24/18 07/24/18 07/25/18 Range/Units 13:42 19:18 02:18 AST 8 L (15-37) U/L Troponin I 0.035 0.035 0.041 (0-0.045) ng/ml Coagulation 07/24/18 07/25/18 07/25/18 Range/Units 13:42 02:18 09:49 PT 11.3 (9.0-12.0) Seconds APTT 27.1 32.2 H 41.9 H (21.0-31.0) Seconds CBC 07/24/18 07/25/18 Range/Units 13:42 02:18 WBC 7.31 6.56 (4.8-10.8) K/uL RBC 4.04 L 3.65 L (4.2-5.4) M/uL Hgb 12.7 11.5 L (12.0-16.0) g/dL Hct 40.0 35.5 L (37-47) % Plt Count 197 175 (130-400) K/uL Neut # (Auto) 5.88 (1.4-6.5) K/uL Lymph # (Auto) 1.10 L (1.2-3.4) K/uL [place] # (Auto) 0.29 (0.11-0.59) K/uL Eos # (Auto) 0.02 (0-0.5) K/uL Baso # (Auto) 0.01 (0-0.2) K/uL Comprehensive Metabolic Panel 07/24/18 07/25/18 Range/Units 13:42 02:18 Sodium 137 138 (136-145) mmol/L Potassium 4.5 4.1 (3.5-5.1) mmol/L Chloride 105 106 (98-107) mmol/L Carbon Dioxide 28 28 (21-32) mmol/L BUN 54 H 60 H (7-18) mg/dl Creatinine 2.31 H 2.54 H (0.6-1.2) mg/dl Glucose 255 H 95 (70-99) mg/dl Calcium 9.3 9.0 (8.5-10.1) mg/dl AST 8 L (15-37) U/L ALT 12 (12-78) U/L Alkaline Phosphatase 137 H (45-117) U/L Total Protein 7.1 (6.4-8.2) gm/dl Albumin 3.6 (3.4-5.0) gm/dl Intake and Output 07/24/18 07/25/18 07/25/18 22:59 06:59 14:59 Intake Total 700 / 1661.280 361.280 / 1661.280 351.034 / 351.034 Output Total Balance 699 / 1660.280 361.280 / 1660.280 351.034 / 351.034 Intake: IV 200 / 961.280 161.280 / 961.280 351.034 / 351.034 NEXTERONE / D5W 360 mg In 200 200 / 228.947 28.947 / 228.947 161.434 / 161.434 ml @ 0.5 MG/MIN 16.667 mls/hr IV .Q12H [facility] Rx#:[id number] HEPARIN SODIUM/DEXTROSE 25,000 132.333 / 132.333 189.6 / 189.6 units In 500 ml @ 1,200 UNITS/ HR 24 mls/hr IV .[id number] [facility] Rx #:[id number] Oral 500 / 700 200 / 700 Output: # Bowel Movements Other: # Unmeasured Voids 1 1 Weight 146 kg 144.9 kg Diagnostic Findings EKG performed this morning 07/25/2018 at 705 revealed atrial fibrillation at 84 bpm, corrected QT interval was within normal limits at 449 ms.
[2018-07-25] MEDS: AMIODARONE 200 MG TAB PO SCH ×2 (14:03→17:23)
[2018-07-25] MEDS: WARFARIN SOD 5 MG TAB PO SCH (16:21)
[2018-07-25] MEDS: Heparin Adult LOW DOSE Wt-Based Dextrose 5% 25,000 units/500 mL IV SCH (17:21)
[2018-07-25 18:20] LABS: Partial Thromboplastin Ratio 2.6
[2018-07-25 18:25] LABS: Partial Thromboplastin Time 70.8 Seconds (21.0-31.0)
--- NOTE | 2018-07-25 18:35 | Hospitalist Progress Note ---
Date of Service July 25, 2018 Assessment & Plan (1) Atrial fibrillation with RVR: Currently rate controlled Continue carvedilol Added amiodarone TSH normal Eliquis discontinued secondary to dosing issues Continue IV heparin, Coumadin Monitor INR Appreciate cardiology input Monitor electrolytes (2) Acute on chronic diastolic (congestive) heart failure: CXR: cardiomegaly and radiographic evidence of mild congestive failure/fluid overload. continue torsemide monitor I&Os, daily weights Monitor volume status (3) Diabetes mellitus, type II: A1c: 8.7 continue home Lantus, Novolog sliding scale per protocol hold Tradjenta monitor BGs (4) HTN (hypertension): Stable Continue current medication (5) Dyslipidemia: continue statin (6) Aortic stenosis: Hx moderate aortic valve stenosis, last echo 12/2017 (7) Chronic kidney disease, stage IV (severe): Cr: 2.5 monitor renal functions avoid nephrotoxic agents when possible (8) Depression: continue duloxetine (9) Nocturnal hypoxia: Continue oxygen 2L NC HS (10) Hypothyroidism: TSH: 4.1 continue levothyroxine DVT Px: IV heparin, Coumadin Code Status DNR Subjective Patient seen and examined at bedside Heart rate is controlled this morning Currently on amiodarone, heparin GGT Exertional shortness of breath is much improved Denies chest pain, palpitations, dizziness Office no other complaints Review of Systems Review of Systems: All systems reviewed & are unremarkable except as noted in HPI & below Physical Exam Physical Exam: Physical Exam: Vitals signs as noted above General Appearance:Obese, no apparent distress Head: normocephalic, Atraumatic Eyes: normal inspection, EOMI Neck: supple, Trachea midline Respiratory/Chest: Normal breath sounds, CTA Cardiovascular: Irregularly Irregular, No murmur Abdomen/GI:Soft, Non tender, Bowel sounds present Extremities/Musculoskelatal:normal inspection, Trace edema Neurologic/Psych:AAOX3, grossly no focal neurological deficits Skin: normal color, warm Results & Data Vital Signs (Past 12 Hours) Vital Signs Temp Pulse Pulse Resp BP Pulse Ox 07/25/18 15:40 36.4 C L 75 19 110/62 95 07/25/18 11:31 36.7 C 84 20 121/68 93 07/25/18 08:00 92 H 07/25/18 07:30 36.5 C 83 18 144/74 H 95
[2018-07-25] MEDS: CARVEDILOL 12.5 MG TAB PO SCH (20:14)
[2018-07-25] MEDS: DULOXETINE HCL 30 MG CAP PO SCH (20:14)
[2018-07-25] MEDS: ROSUVASTATIN CALCIUM 20 MG TAB PO SCH (20:40)
[2018-07-26 01:12] LABS: Partial Thromboplastin Ratio 1.8
[2018-07-26 01:31] LABS: Partial Thromboplastin Time 47.6 Seconds (21.0-31.0)
[2018-07-26] MEDS: LEVOTHYROXINE SODIUM 175 MCG TABLET PO SCH (05:43)
[2018-07-26 05:57] LABS: Hematocrit (blood only) 33.7 % (37-47); Hemoglobin 11.3 g/dL (12.0-16.0); Mean Corpuscular Hgb Conc 33.5 g/dL (32-36); Mean Corpuscular Volume 95.2 fL (80-100); Mean Platelet Volume 10.7 fL (7.4-10.4); Platelet Count 156 K/uL (130-400); RDW Coefficient of Variation 13.6 % (11.5-14.5); Red Blood Count 3.54 M/uL (4.2-5.4); White Blood Count 5.33 K/uL (4.8-10.8)
[2018-07-26 06:40] LABS: BUN Creatinine Ratio 24.9 (10-20); Calcium 8.7 mg/dl (8.5-10.1); Creatinine Clr Calc Pharmacy 30.5 ml/min; Est GFR (African American) 21.5; Est GFR (Non-African American) 18.5; Potassium 4.1 mmol/L (3.5-5.1)
[2018-07-26] MEDS: DULOXETINE HCL 60 MG CAP PO SCH (07:54)
[2018-07-26] MEDS: ALLOPURINOL 100 MG TAB PO SCH (07:54)
[2018-07-26] MEDS: CARVEDILOL 25 MG TAB PO SCH (07:54)
[2018-07-26] MEDS: ISOSORBIDE MONO EXTENDED REL 30 MG TABCR PO SCH (07:54)
[2018-07-26] MEDS: AMLODIPINE BESYLATE 5 MG TAB PO SCH (07:54)
[2018-07-26] MEDS: LOSARTAN POTASSIUM 50 MG TAB PO SCH (07:55)
[2018-07-26] MEDS: TORSEMIDE 20 MG TAB PO SCH (07:55)
[2018-07-26] MEDS: INSULIN GLARGINE SOLOSTAR 100 UNITS/ML 3 ML PEN SC SCH ×2 (07:55→22:14)
[2018-07-26] MEDS: LORATADINE 10 MG TAB PO SCH (07:55)
[2018-07-26] MEDS: AMIODARONE 200 MG TAB PO SCH ×3 (07:56→15:57)
[2018-07-26] MEDS: INSULIN ASPART 100 UNITS/ML 3 ML PEN SC SCH ×4 (07:57→22:12)
[2018-07-26] MEDS: ACETAMINOPHEN 325 MG TAB PO PRN ×2 (08:05→22:25)
[2018-07-26] MEDS: AMIODARONE / D5W 360 MG/200 ML BAG IV SCH ×2 (08:06→20:17)
[2018-07-26] MEDS: Heparin Adult LOW DOSE Wt-Based Dextrose 5% 25,000 units/500 mL IV SCH (12:32)
--- NOTE | 2018-07-26 13:18 | Cardiology Progress Note ---
Date of Service July 26, 2018 Assessment & Plan (1) Atrial fibrillation with RVR: Continue carvedilol and oral amiodarone initiation. Patient prefers trial of conservative medication therapy with antiarrhythmic repeat prior to consideration of direct-current cardioversion, given her history of aortic stenosis, I do think the risk of sedating her for cardioversion is higher than that of the average cardioversion patient, and I agree that a trial of conservative medication therapy is warranted. As previously discussed given her renal insufficiency and obesity, Coumadin is felt to be the best agent for her in terms of stroke prophylaxis. She received 5 mg yesterday. INR still pending today. I will call the lab and check up on this as it should have been drawn with her PTT this morning. Need to establish with anticoagulation clinic, likely [facility] as outpatient. Keep on telemetry, will reassess tomorrow. (2) Aortic stenosis: (3) Chronic kidney disease, stage IV (severe): Subjective Chief complaint: Follow-up shortness of breath, sensation of elevated heart rate Subjective: Patient states she feels much improved. Telemetry reveals rate controlled atrial fibrillation in the range of 70 to 80 bpm. Physical Exam Physical Exam: General: no acute distress and stated age Eyes: conjunctiva are pink and non-injected, sclera clear Neck: normal jugular venous pulse, no hepatojugular reflux Chest: normal shape and normal respiratory effort Lungs: clear to auscultation and percussion Cardiac Exam: -Irregular rhythm, I/ systolic murmur Abdomen: abdomen soft, non-tender, no abnormal masses and no hepatosplenomegaly Musculoskeletal: no gait disturbance, no weakness Extremities: no edema and no cyanosis Neuro:awake, coversant, follows commands, no focal motor deficits Psych: appropriate affect and insight. Results & Data Vital Signs (Past 12 Hours) Vital Signs Temp Pulse Resp BP Pulse Ox 07/26/18 11:08 36.7 C 85 19 140/62 92 07/26/18 06:56 37.0 C 63 19 161/83 H 95 07/26/18 02:50 36.6 C 78 16 145/64 H 95 Laboratory Results Hemoglobin 11.3 Platelet count 156 No INR available as of yet PTT 47.6 Creatinine 2.46, stable compared to 2.54 yesterday. Diagnostic Findings EKG performed 07/26/2018 reviewed independently reveals atrial fibrillation at [address] segments with nonspecific diffuse T wave flattening.
[2018-07-26 13:32] LABS: INR 1.2 (0.9-1.1); Prothrombin Time 11.7 Seconds (9.0-12.0)
--- NOTE | 2018-07-26 15:17 | Hospitalist Progress Note ---
Date of Service July 26, 2018 Assessment & Plan (1) Atrial fibrillation with RVR: Currently rate controlled Continue carvedilol, amiodarone TSH normal Eliquis discontinued secondary to dosing issues Continue IV heparin, Coumadin Monitor INR:1.2 today Appreciate cardiology input Monitor electrolytes Continue current medications (2) Acute on chronic diastolic (congestive) heart failure: CXR: cardiomegaly and radiographic evidence of mild congestive failure/fluid overload. continue torsemide monitor I&Os, daily weights Monitor volume status (3) Diabetes mellitus, type II: A1c: 8.7 continue home Lantus, Novolog sliding scale per protocol hold Tradjenta monitor BGs (4) HTN (hypertension): Stable Continue current medication (5) Dyslipidemia: continue statin (6) Aortic stenosis: Hx moderate aortic valve stenosis, last echo 12/2017 (7) Chronic kidney disease, stage IV (severe): Cr: 2.5 monitor renal functions avoid nephrotoxic agents when possible (8) Depression: continue duloxetine (9) Nocturnal hypoxia: Continue oxygen 2L NC HS (10) Hypothyroidism: TSH: 4.1 continue levothyroxine DVT Px: IV heparin, Coumadin Code Status DNR Subjective Patient seen and examined at bedside Feels better today No new complaints HR is controlled On amiodarone, heparin GGT Denies chest pain, palpitations, dizziness Review of Systems Review of Systems: All systems reviewed & are unremarkable except as noted in HPI & below Physical Exam Physical Exam: Physical Exam: Vitals signs as noted above General Appearance:Obese, no apparent distress Head: normocephalic, Atraumatic Eyes: normal inspection, EOMI Neck: supple, Trachea midline Respiratory/Chest: Normal breath sounds, CTA Cardiovascular: Irregularly Irregular, No murmur Abdomen/GI:Soft, Non tender, Bowel sounds present Extremities/Musculoskelatal:normal inspection, Trace edema Neurologic/Psych:AAOX3, grossly no focal neurological deficits Skin: normal color, warm Results & Data Vital Signs (Past 12 Hours) Vital Signs Temp Pulse Resp BP Pulse Ox 07/26/18 11:08 36.7 C 85 19 140/62 92 07/26/18 06:56 37.0 C 63 19 161/83 H 95 Laboratory Results Short CBC 07/26/18 Range/Units 05:39 WBC 5.33 (4.8-10.8) K/uL Hgb 11.3 L (12.0-16.0) g/dL Hct 33.7 L (37-47) % Plt Count 156 (130-400) K/uL BMP 07/26/18 05:39 Sodium 136 Potassium 4.1 Chloride 103 Carbon Dioxide 27 BUN 61 H Creatinine 2.46 H Glucose 159 H Calcium 8.7
[2018-07-26] MEDS: WARFARIN SOD 5 MG TAB PO SCH (15:56)
[2018-07-26] MEDS: CARVEDILOL 12.5 MG TAB PO SCH (22:10)
[2018-07-26] MEDS: DULOXETINE HCL 30 MG CAP PO SCH (22:11)
[2018-07-26] MEDS: ROSUVASTATIN CALCIUM 20 MG TAB PO SCH (22:12)
[2018-07-27] MEDS: AMIODARONE / D5W 360 MG/200 ML BAG IV SCH (05:36)
[2018-07-27] MEDS: LEVOTHYROXINE SODIUM 175 MCG TABLET PO SCH (05:37)
[2018-07-27 07:01] LABS: INR 1.1 (0.9-1.1); Prothrombin Time 11.4 Seconds (9.0-12.0)
[2018-07-27 07:02] LABS: Partial Thromboplastin Ratio 1.5; Partial Thromboplastin Time 41.6 Seconds (21.0-31.0)
[2018-07-27 07:21] LABS: BUN Creatinine Ratio 24.5 (10-20); Calcium 8.5 mg/dl (8.5-10.1); Creatinine Clr Calc Pharmacy 27.5 ml/min; Est GFR (African American) 18.6; Est GFR (Non-African American) 16.1; Potassium 3.9 mmol/L (3.5-5.1)
[2018-07-27] MEDS ORDERED: HEPARIN IV BOLUS 4,000 UNITS in SYRINGE 0 ML IV ONE (07:30)
[2018-07-27] MEDS: AMLODIPINE BESYLATE 5 MG TAB PO SCH (07:58)
[2018-07-27] MEDS: AMIODARONE 200 MG TAB PO SCH ×2 (07:58→12:44)
[2018-07-27] MEDS: LORATADINE 10 MG TAB PO SCH (07:58)
[2018-07-27] MEDS: LOSARTAN POTASSIUM 50 MG TAB PO SCH (07:58)
[2018-07-27] MEDS: ISOSORBIDE MONO EXTENDED REL 30 MG TABCR PO SCH (07:58)
[2018-07-27] MEDS: DULOXETINE HCL 60 MG CAP PO SCH (07:59)
[2018-07-27] MEDS: INSULIN GLARGINE SOLOSTAR 100 UNITS/ML 3 ML PEN SC SCH (07:59)
[2018-07-27] MEDS: ALLOPURINOL 100 MG TAB PO SCH (07:59)
[2018-07-27] MEDS: CALCITRIOL 0.25 MCG CAPSULE PO SCH (07:59)
[2018-07-27] MEDS: CARVEDILOL 25 MG TAB PO SCH (07:59)
[2018-07-27] MEDS: TORSEMIDE 20 MG TAB PO SCH (07:59)
[2018-07-27] MEDS: INSULIN ASPART 100 UNITS/ML 3 ML PEN SC SCH ×2 (08:01→12:44)
[2018-07-27] MEDS: Heparin Adult LOW DOSE Wt-Based Dextrose 5% 25,000 units/500 mL IV SCH (09:26)
[2018-07-27] MEDS: ACETAMINOPHEN 325 MG TAB PO PRN (09:27)
--- NOTE | 2018-07-27 14:18 | Cardiology Progress Note ---
Date of Service July 27, 2018 Assessment & Plan (1) Atrial fibrillation with RVR: Continue current medications including prior to hospital carvedilol dose of 25 mg every morning 12.5 mg every afternoon. Amiodarone added for rate control, discharged on 200 mg twice daily, dosing will be adjusted further at time of outpatient follow-up. Had initially planned to keep the patient until her INR was therapeutic on heparin bridge. She is not a candidate for low molecular weight heparin bridge given her renal insufficiency. Think it is reasonable for her to be discharged with plans of close follow-up with the outpatient anticoagulation clinic in [place] for further follow-up of her INR. Agree with Coumadin dose of 7.5 mg today. (2) Acute on chronic diastolic (congestive) heart failure: Symptoms improved with resolution of her tachycardia. (3) Aortic stenosis: Stable moderate to borderline severe aortic stenosis. (4) Chronic kidney disease, stage IV (severe): Creatinine relatively stable this admission. Subjective Chief complaint: Follow-up exertional shortness of breath, subjective palpitations Subjective: Patient feels well. She is eager for discharge. Telemetry reveals rate controlled atrial fibrillation in the range of 70 to 90 bpm. Blood pressure stable. Physical Exam Physical Exam: General: no acute distress and stated age Eyes: conjunctiva are pink and non-injected, sclera clear Neck: normal jugular venous pulse, no hepatojugular reflux Chest: normal shape and normal respiratory effort Lungs: clear to auscultation and percussion Cardiac Exam: -Irregular rhythm, 1/6 systolic murmur Abdomen: abdomen soft, non-tender, no abnormal masses and no hepatosplenomegaly Extremities: no edema and no cyanosis Neuro:awake, coversant, follows commands, no focal motor deficits Psych: appropriate affect and insight. Results & Data Vital Signs (Past 12 Hours) Vital Signs Temp Pulse Resp BP Pulse Ox 07/27/18 11:32 36.4 C L 75 18 116/68 95 07/27/18 07:21 36.9 C 84 18 161/78 H 95 07/27/18 04:18 37 C 83 20 137/72 91 Laboratory Results An INR drawn today 07/27/2018 was 1.1. PTT 41.6.
--- NOTE | 2018-07-27 14:19 | Hospitalist Progress Note ---
Date of Service July 27, 2018 Assessment & Plan (1) Atrial fibrillation with RVR: Continue carvedilol, amiodarone TSH normal Eliquis discontinued secondary to dosing issues Continue IV heparin, Coumadin Monitor INR:1.1 today Appreciate cardiology input Monitor electrolytes Continue current medications Plan to discharge on Carvedilol 25mg AM and 12.5mg PM Amiodarone 200mg BID (2) Acute on chronic diastolic (congestive) heart failure: CXR: cardiomegaly and radiographic evidence of mild congestive failure/fluid overload. continue torsemide monitor I&Os, daily weights Monitor volume status (3) Diabetes mellitus, type II: A1c: 8.7 continue home Lantus, Novolog sliding scale per protocol hold Tradjenta monitor BGs (4) HTN (hypertension): Stable Continue current medication (5) Dyslipidemia: continue statin (6) Aortic stenosis: Hx moderate aortic valve stenosis, last echo 12/2017 (7) Chronic kidney disease, stage IV (severe): Cr at baseline monitor renal functions avoid nephrotoxic agents when possible (8) Depression: continue duloxetine (9) Nocturnal hypoxia: Continue oxygen 2L NC HS (10) Hypothyroidism: TSH: 4.1 continue levothyroxine DVT Px: IV heparin, Coumadin Code Status DNR Disposition: Plan to discharge home with Home Health today Subjective Patient seen and examined at bedside Eager to get discharged Feels tired this morning Denies chest pain, palpitations, dizziness Offers no other complaints Review of Systems Review of Systems: All systems reviewed & are unremarkable except as noted in HPI & below Physical Exam Physical Exam: Physical Exam: Vitals signs as noted above General Appearance:Obese, no apparent distress Head: normocephalic, Atraumatic Eyes: normal inspection, EOMI Neck: supple, Trachea midline Respiratory/Chest: Normal breath sounds, CTA Cardiovascular: Irregularly Irregular, No murmur Abdomen/GI:Soft, Non tender, Bowel sounds present Extremities/Musculoskelatal:normal inspection, Trace edema Neurologic/Psych:AAOX3, grossly no focal neurological deficits Skin: normal color, warm Results & Data Vital Signs (Past 12 Hours) Vital Signs Temp Pulse Resp BP Pulse Ox 07/27/18 11:32 36.4 C L 75 18 116/68 95 07/27/18 07:21 36.9 C 84 18 161/78 H 95 07/27/18 04:18 37 C 83 20 137/72 91 Laboratory Results [facility] 07/27/18 06:36 Sodium 135 L Potassium 3.9 Chloride 103 Carbon Dioxide 26 BUN 68 H Creatinine 2.77 H D Glucose 150 H Calcium 8.5
--- NOTE | 2018-07-27 14:46 | Discharge Summary ---
Date of Service July 27, 2018 Admission HPI Per Admitting Provider Pt is 73 y/o F with PMH paroxysmal atrial fibrillation on Eliquis, chronic diastolic heart failure, aortic valve stenosis, HTN, dyslipidemia, CKD IV, chronic nocturnal hypoxia, chronic anemia, DM II, obesity, depression, hypothyroidism presented to ER from cardiology office for atrial fibrillation. Patient was seen today cardiology office and had noted atrial fibrillation with rate of 108. Patient reports that she has been having intermittent tachypalpitations, dizziness over the past couple of weeks. Also reports increased dyspnea on exertion, nonproductive cough, increased fatigue. Patient states has home pulse oximeter and had noted on several occasions her pulse was recorded at 165. Patient denies missed doses of Eliquis. Denies fever/chills, diaphoresis, N/V/D/C, [place], syncope, vision changes, neck pain, CP, orthopnea, sore throat, choking, otalgia, rhinorrhea, abdominal pain, paresthesias, weakness, extremity edema, rashes, urinary symptoms. 12/2017: Echo: EF: 55-59%, moderate aortic valve stenosis, mild mitral regurgitation, small pericardial effusion Admission Exam Per Admitting Provider General: no acute distress, obese Head: normocephalic, atraumatic Eyes: PERRL, EOM's intact, conjunctiva non-injected, anicteric ENT: normal inspection external ears, nose, mucous membranes moist Neck: supple, trachea midline Lungs: no respiratory distress, diminished breath sounds bases CV: irregularly irregular, systolic murmur, 1+ pretibial edema Abd: normal BS, soft, non-tender Ext: no cyanosis, no calf tenderness Neuro: A&O x 3, no focal deficits noted, normal affect Skin: warm, dry Principal Diagnosis Discharge Information Discharge Diagnosis Atrial fibrillation with RVR Acute on chronic diastolic heart failure Discharge Goals Decrease discomfort,Improve disease control, Improve function Discharge Activity Limitations Resume your previous activity Discharge Data Allergies Allergy/AdvReac Type Severity Reaction Status Date / Time No Known Allergies Allergy Unverified 07/24/18 14:22 Consultations 07/24/18 14:45 ED Decision to Admit Stat 07/24/18 18:03 Consult Cardiology Routine Consult Case Management - Discharge Planning Routine Procedures Performed CXR: Cardiomegaly and radiographic evidence of mild congestive failure/fluid overload. Hospital Course (1) Atrial fibrillation with RVR: Continue carvedilol, amiodarone TSH normal Eliquis discontinued secondary to dosing issues Continue IV heparin, Coumadin Monitor INR:1.1 today Appreciate cardiology input Monitor electrolytes Continue current medications Plan to discharge on Carvedilol 25mg AM and 12.5mg PM Amiodarone 200mg BID (2) Acute on chronic diastolic (congestive) heart failure: CXR: cardiomegaly and radiographic evidence of mild congestive failure/fluid overload. continue torsemide monitor I&Os, daily weights Monitor volume status (3) Diabetes mellitus, type II: A1c: 8.7 continue home Lantus, Novolog sliding scale per protocol hold Tradjenta monitor BGs (4) HTN (hypertension): Stable Continue current medication (5) Dyslipidemia: continue statin (6) Aortic stenosis: Hx moderate aortic valve stenosis, last echo 12/2017 (7) Chronic kidney disease, stage IV (severe): Cr at baseline monitor renal functions avoid nephrotoxic agents when possible (8) Depression: continue duloxetine (9) Nocturnal hypoxia: Continue oxygen 2L NC HS (10) Hypothyroidism: TSH: 4.1 continue levothyroxine DVT Px: IV heparin, Coumadin Code Status DNR Disposition: Plan to discharge home with Home Health today Total Time Total Time Spent Total Time Spent (In Minutes): 38 minutes Total Time Includes: Examination of the Patient, Discharge Planning, Medication Reconciliation, Communication With Other Providers and Other Discharge Plan Discharge Items Patient Disposition: Home - Home Health Services Reason For Visit: AFIB Discharge Diagnosis: Atrial fibrillation with RVR Acute on chronic diastolic heart failure Discharge Goals: Decrease discomfort, Improve disease control and Improve function Activity: Resume your previous activity Exercise/Sports: Gradually increase as tolerated Non-emergency contact: Primary Care Provider and Employee Relations Manager Call non-emergency contact if: you have any medication questions, your symptoms worsen, your pain is not controlled, your pain is worsening, your pain is unusual for you, your pain is concerning for you and you have a fever Follow-up/Referrals: Miquel Herr MD [Primary Care Provider] - Diet: Carb Consistent or DM2 and Heart Healthy Other Ambulatory Orders: Prothrombin Time INR (Routine) Timeframe: 3 Days Location: Determined by Patient Ordered By: Jose De Jesus Ayala Addtl Provider Instructions: Follow-up with your primary care physician Dr. Herr on August 02, 2018 at 12:45 PM Follow-up with your realty specialist Dr. Kurtz in 1-2 weeks Follow-up with Coumadin clinic for PT/INR checks and Coumadin dosing as advised Seek immediate medical attention if your symptoms reoccur or worsen Your Apixaban(Eliquis) is discontinued Your PT/INR on 07/27/18 is 1.1 Take coumadin 7.5mg today (07/27/18), 5mg on 07/28/18 and 07/29/18 Get PT/INR checked on 07/30/18 and follow up with coumadin clinic for further coumadin dosing Call your Primary Care doctor if any of the following symptoms or problems start or get worse: * Shortness of breath or difficulty breathing * Wake up at night short of breath * Chest pain * Cough * Swelling of your hands, feet, or legs * More fatigued or tired with your normal activity * Palpitations - sudden fast heart beats WEIGHT * Weigh yourself every morning after using the bathroom. * Use the same scale. * Wear the same amount of clothing. * Write your weight down on a chart. * Call your Primary Care doctor if you gain more than 2-3 pounds in 1-2 days. MEDICATIONS * Use this discharge instruction sheet for medication instructions. * Take your medications at the time your doctor ordered. * Do not skip a dose of your medicines. * If you miss a dose of medicine, take it as soon as possible, but DO NOT DOUBLE A DOSE. * Read your medicine information when you get home. * Know all of the side effects of your medicine. If in doubt, ask your pharmacist * Call your Primary Care doctor's office if you have any side effects. * Be sure all of your doctors know what medicine and herbs you take (including cold, flu, and herbal medicine). Take the following with you to your follow-up doctor appointments: * Weight Chart * Medication List * List of questions Do not drink excessive alcohol, beer or wine. Prescriptions: New amiodarone 200 mg Tablet 200 mg PO BID 30 Days Qty: 60 RF: 1 warfarin [Coumadin] 2.5 mg tablet 2.5 mg PO UD Qty: 60 RF: 0 warfarin [Coumadin] 5 mg tablet 5 mg PO UD Qty: 60 RF: 0 warfarin [Coumadin] 1 mg tablet 1 mg PO UD Qty: 60 RF: 0 Continued losartan 50 mg Tablet 50 mg PO DAILY RF: 0 levothyroxine [Synthroid] 175 mcg Tablet 175 mcg PO DAILY RF: 0 carvedilol [Coreg] 25 mg Tablet 25 mg PO QAM RF: 0 carvedilol [Coreg] 25 mg Tablet 12.5 mg PO PM RF: 0 torsemide [Demadex] 20 mg Tablet 20 mg PO DAILY RF: 0 isosorbide mononitrate 30 mg Tablet Extended Release 24 Hr 30 mg PO DAILY RF: 0 allopurinol 100 mg Tablet 200 mg PO DAILY RF: 0 tramadol 50 mg Tablet 50 mg PO Q8H PRN (Reason: Pain) RF: 0 amlodipine 10 mg Tablet 5 mg PO DAILY RF: 0 ranitidine HCl [Zantac] 150 mg Tablet 150 mg PO BID RF: 0 calcitriol 0.25 mcg Capsule 0.25 mcg PO UD RF: 0 loratadine [Claritin] 10 mg Tablet 10 mg PO DAILY RF: 0 rosuvastatin [Crestor] 20 mg Tablet 20 mg PO HS RF: 0 duloxetine [Cymbalta] 30 mg Capsule,Delayed Release(Dr/Ec) 30 mg PO HS RF: 0 duloxetine [Cymbalta] 60 mg Capsule,Delayed Release(Dr/Ec) 60 mg PO DAILY RF: 0 Lantus Solostar U-100 Insulin 100 unit/mL (3 mL) Insulin Pen 48 unit SUBCUT DAILY RF: 0 Tradjenta 5 mg Tablet 5 mg PO DAILY RF: 0 Novolog Flexpen U-100 Insulin 100 unit/mL (3 mL) Insulin Pen 14 unit SUBCUT TIDM RF: 0 Discontinued Eliquis 2.5 mg Tablet 2.5 mg PO BID RF: 0 Stand-Alone Forms: [facility] Discharge Orders: Discharge Order (Routine); Ordered 07/27/18 Ordered By: Jose De Jesus Ayala Admission Data Admit Date/Time: 07/24/18 15:51 Attending Provider: Jose De Jesus Ayala Admit Provider: Buzz Putnam Primary Care Provider: Miquel Herr Other Providers: Jonathan Lombardi ; Nikko Kurtz ; Buzz Putnam Service: Telemetry Other Interventions: Discharge Summary Assessment (RN) Last Done: 07/27/18 15:07 Pending Studies at Discharge: No DC Date/Time DO NOT enter until pt leaves facility: 07/27/18 15:57
[2018-07-27] MEDS ORDERED: WARFARIN SOD 7.5 MG TAB PO SCH (16:00)
[2018-07-27] MEDS ORDERED: AMIODARONE 200 MG TAB PO SCH (21:00)
== END 2018-07-27 15:57 | disposition home health service (06) | DRG 308 ==
LOC: ED 12:53 → SUATTDRO 15:51 → 2S 15:51